=== PATIENT | female | born 1990 | race Caucasian/White ===

== ENCOUNTER 2021-02-15 12:20 | Emergency (ER) | payer BC ==
[2021-02-15] MEDS ORDERED: Acetaminophen/Codeine 30-300mg Tablet ONE (14:54)
== END 2021-02-15 17:04 | disposition home or self-care (01) ==
LOC: CSHERS 12:20
DX: R07.81 Pleurodynia (principal); J40 Bronchitis, not specified as acute or chronic
CPT/HCPCS: 71045; 99284; J7620

== ENCOUNTER 2021-05-04 15:12 | Day surgery (SDC) | payer BC, OTHER ==
[2021-05-04 15:51] VITALS: BMI 23.6
[2021-05-04] MEDS ORDERED: hydrALAZINE 20 MG/ML VIAL SLOW IVP PRN (16:20)
[2021-05-04] MEDS ORDERED: Promethazine HCl 25 MG/ML VIAL IM SCH (16:30)
[2021-05-04] MEDS: Lactated Ringer's 1,000 ML IV SCH ×2 (16:57→18:12)
[2021-05-04] MEDS ORDERED: Lactated Ringer's 1,000 ML IV SCH (18:15)
[2021-05-04] MEDS ORDERED: Acetaminophen 325 MG TAB PO SCH (18:15)
[2021-05-04 18:59] VITALS: TEMP 99.7
[2021-05-04] MEDS ORDERED: Acetaminophen 500 MG TAB PO SCH (19:00)
== END 2021-05-04 21:27 | disposition home or self-care (01) ==
LOC: CSHLD/OP 15:12
PROVIDERS: ATTEND Student in an Organized Health Care Education/Training Program
DX: O99.891 Other specified diseases and conditions complicating pregnancy (principal); R19.7 Diarrhea, unspecified; Z3A.29 29 weeks gestation of pregnancy; Z86.16 Personal history of COVID-19; Z79.899 Other long term (current) drug therapy
CPT/HCPCS: 87804; J2550